=== PATIENT | male | born 1945 | race Caucasian/White ===

== ENCOUNTER → 2016-04-21 | Outpatient (CLI) | payer OTHER | LOC: BMCIMAGING 11:38 | PROVIDERS: ATTEND Internal Medicine | DX: I82.511 Chronic embolism and thrombosis of right femoral vein (principal); R93.6 Abnormal findings on diagnostic imaging of limbs ==

== ENCOUNTER → 2018-01-24 | Outpatient (CLI) | payer OTHER | LOC: BMCIMAGING 11:00 | PROVIDERS: ATTEND Physician Assistant Medical | DX: J98.09 Other diseases of bronchus, not elsewhere classified (principal) ==